=== PATIENT | female | born 1965 | race Caucasian/White ===

== ENCOUNTER 2021-02-15 08:12 | Outpatient (CLI) | payer OTHER, SELFPAY ==
--- NOTE | ~2021-02-15 | MM_ITS ---
EXAMINATION: MM screening kaia BI w rachel HISTORY: Screening TECHNIQUE: Craniocaudal and mediolateral oblique 3-D tomosynthesis images were obtained and synthetic 2-D images were generated. CAD analysis was submitted and interpreted. COMPARISON: Comparison to multiple prior studies sequentially, with oldest reviewed study dated 12/2012. BREAST PARENCHYMAL COMPOSITION: The breasts are heterogeneously dense, which may obscure small masses . FINDINGS: There is no evidence of suspicious mass, calcification, or architectural distortion to sugg est malignancy in either breast. There has been no suspicious interval change. IMPRESSION: 1. No mammographic evidence of malignancy. 2. Recommend routine screening mammography in one year. BI-RADS Category 1: Negative Reviewed, dictated and finalized at location A.
== END 2021-02-15 08:13 | disposition home or self-care (01) ==
LOC: ANHIMG 08:15
PROVIDERS: PCP Family Medicine; Visit Provider Family Medicine
DX: Z12.31 Encounter for screening mammogram for malignant neoplasm of breast (principal)
CPT/HCPCS: 77063; 77067

== ENCOUNTER → 2022-03-31 09:15 | Outpatient (CLI) | payer OTHER, SELFPAY ==
--- NOTE | ~2022-03-31 | XR_ITS ---
EXAMINATION:XR cervical spine 4-5V DATE: 03/31/2022 09:26 INDICATION: Neck pain TECHNIQUE: AP, lateral, lateral swimmers and odontoid views of the cervical spine are provided. COMPARISON: None FINDINGS: There are 2 mm of anterolisthesis of C3 on C4. The odontoid is intact. No fracture is ident ified. The vertebral body heights are maintained. There is moderate loss of intervertebral disc space height at C4-5, C5-6 and C7-T1. Prevertebral soft tissues are normal. There is moderate facet and un covertebral joint osteoarthritis throughout the cervical spine. IMPRESSION: 1. Moderate cervical spondylosis without acute findings. Reviewed, dictated and finalized at location A.
== END ==
PROVIDERS: PCP Family Medicine; Visit Provider Physician Assistant
DX: M54.2 Cervicalgia (principal); M43.02 Spondylolysis, cervical region
CPT/HCPCS: 72050

== ENCOUNTER → 2022-10-16 10:00 | Outpatient (CLI) | payer OTHER, SELFPAY ==
--- NOTE | ~2022-10-16 | XR_ITS ---
AP view of the pelvis and AP and lateral views of the left hip Clinical history: Pain Findings: No acute fracture or dislocation is seen. Osseous alignment is anatomic. There is mild dege nerative spurring at the superolateral left acetabular margin. Left hip joint space is preserved. Sof t tissues are unremarkable. Impression: . Minimal degenerative change of the left hip joint. Reviewed, dictated and finalized at location M. Impression: . Minimal degenerative change of the left hip joint.
== END ==
PROVIDERS: PCP Family Medicine; Visit Provider Physician Assistant
DX: M25.552 Pain in left hip (principal)
CPT/HCPCS: 73502

== ENCOUNTER 2023-02-26 13:10 | Outpatient (CLI) | payer OTHER, SELFPAY ==
--- NOTE | ~2023-02-26 | MM_ITS ---
EXAMINATION: MM screening kaia BI w rachel HISTORY: Screening mammogram TECHNIQUE: Craniocaudal and mediolateral oblique 3-D tomosynthesis images were obtained and synthetic 2-D images were generated. CAD analysis was submitted and interpreted. COMPARISON: 02/15/2021, 04/05/2017 bilateral screening mammogram examinations BREAST PARENCHYMAL COMPOSITION: The breasts are heterogeneously dense, which may obscure small masses . FINDINGS: There is no evidence of suspicious mass, calcification, or architectural distortion to sugg est malignancy in either breast. There has been no suspicious interval change. IMPRESSION: 1. No mammographic evidence of malignancy. 2. Recommend routine screening mammography in one year. BI-RADS Category 1: Negative Reviewed, dictated and finalized at location A.
--- NOTE | ~2023-02-26 | DEXA_ITS ---
Bone Density Report Name: LISETH FLETCHER Age: 57 Sex: Female Ethnicity: White Date of : 1965 Indication: postmenopausal; screening for osteoporosis; hysterectomy; Referring Provider: FLORESITA PARTIDA Study: Bone densitometry was performed. Exam Date: February 26, 2023 Accession number: [id number] Bone Density: Region BMD T-score Z-score Classification AP Spine(L1, L2) 0.945 -0.3 0.8 Normal Femoral Neck (Left) 0.758 -0.8 0.3 Normal Total Hip (Left) 1.013 0.6 1.3 Normal Femoral Neck (Right) 0.750 -0.9 0.2 Normal Total Hip (Right) 0.925 -0.1 0.6 Normal Total Hip Mean 0.969 0.3 1.0 Normal World Health Organization criteria for BMD impression classify patients as: Normal (T-score at or above -1.0), Osteopenia (T-score between -1.0 and -2.5), or Osteoporosis (T-score at or below -2.5). 10-year Fracture Risk: FRAX not reported because: All T-scores for Spine Total, Hip Total, Femoral Neck at or above -1.0 Clinical Information Provided by Patient: Has the following medical conditions: Hysterectomy Patient maximum height was 67 Menopause Age: 46 Drinks caffeinated beverages Onset of menses at age 13 Number of children 2 Impression: The patient has normal bone mass. Discussion: BONE DENSITY IS ABOVE THE MINIMUM DESIRABLE LEVEL AT ALL SKELETAL SITES TESTED. This patient?s bone mineral density is above the minimum desirable level (T-score -1.0 or better) at all sites measured. The patient should follow a healthful lifestyle (good nutrition with adequate calcium and vitamin D, and appropriate weight-bearing exercise). Follow-Up: Consider repeating this study in 5 years or sooner if there is some new clinical indication. Reported by: ALISSA on 02/26/2023 1:38:00 PM. Reviewed, dictated and finalized at location A. [facility]
== END 2023-02-26 13:11 | disposition home or self-care (01) ==
LOC: ANHIMG 13:12
PROVIDERS: PCP Family Medicine; Visit Provider Physician Assistant
DX: Z12.31 Encounter for screening mammogram for malignant neoplasm of breast (principal); Z78.0 Asymptomatic menopausal state
CPT/HCPCS: 77063; 77067; 77080

== ENCOUNTER 2023-05-15 13:26 | Outpatient (RCR) | payer OTHER, SELFPAY ==
[2023-05-15 13:30] VITALS: BMI 27.9
== END 2023-07-30 10:09 | disposition home or self-care (01) ==
LOC: ANHDMC 13:26
PROVIDERS: PCP Family Medicine; Visit Provider Physician Assistant
DX: E11.9 Type 2 diabetes mellitus without complications (principal); Z71.3 Dietary counseling and surveillance
CPT/HCPCS: 97802

== ENCOUNTER 2023-06-19 14:30 | Outpatient (RCR) | payer OTHER, SELFPAY ==
--- NOTE | 2023-05-22 09:50 | OPREHPOC ---
Outpatient Therapy Plan of Care This is a Multidisciplinary Plan of Care that may contain components documented by all disciplines (PT, OT, and ST.) PT Problem 1 PT Problem #1 Knowledge Deficit PT Goal 1 Goal Pt to be IND with issued HEP Target Visit 8 PT Problem 2 PT Problem #2 Pain PT Goal 1 Goal Pt to report neck/shoulder pain no greater than 3/ 10 in the last week. Target Visit 8 PT Goal 2 Goal Pt to report 75% improvement in overall symptoms. Target Visit 8 PT Problem 3 PT Problem #3 Impaired Range of Motion PT Goal 1 Goal Pt to improve amy cervical rotation to 60 deg actively. Target Visit 8 PT Problem 4 PT Problem #4 Impaired Strength PT Goal 1 Goal Pt to demonstrate amy shoulder strength grossly 4+ /5 Target Visit 8 PT Goal 2 Goal Pt to demonstrate amy overhead press with 5lb without compensations Target Visit 8
--- NOTE | 2023-05-22 09:51 | PTOPEVAL1 ---
Assessment and note entered by Vika Boyd, PT, DPT Evaluation Information Assessment Status Evaluation Diagnosis cervical radiculopathy Subjective Information Pt states she has cervical stenosis that makes her shoulders her more so than her neck. She states she received an injection last week and has been doing much better since. She states sleeping was initially her biggest complaint but this has also improved. Pt is a surgical nurse. Reported Pain Level Pain Score 2: Self Report Assessment PT Clinical Summary Brenda presents to therapy today for her initial evaluation with a diagnosis of cervical radiculopathy. Today she demonstrates decreased active cervical ROM, accessory upper trap recruitment, and decreased shoulder strength amy. She demonstrates good active shoulder ROM and normal cervical ROM passively. Skilled therapy services are indicated to address the depicts noted above, to improve mobility, and to return to PLOF. Plan of Care Interventions Electrical Stimulation,Hot Pack/Cold Pack,Manual Therapy,Mechanical Traction,Neuro Re-education, Patient/Caregiver Educati,Therapeutic Activities, Therapeutic Exercise PT Services Indicated Yes Treatment Frequency and 1x/wk for 4 visits Duration These treatments will address the objective and functional deficits as defined above. The patient will be advanced safely and appropriately in order for the patient to progress towards his/her prior level of function. Additional exercises will be introduced and as well as a comprehensive home exercise program upon discharge, if needed, ?to ensure carryover of functional gains achieved in the clinic. This treatment plan has been reviewed and agreement upon by the patient.
--- NOTE | 2023-06-19 15:25 | PTOPPROG ---
Assessment and note entered by Vika Boyd, PT, DPT Evaluation Information Assessment Status Progress Diagnosis cervical radiculopathy Subjective Information Pt states she can tell her back and shoulder feel stronger and more mobile that when she started therapy. She states she is getting another injection this week. Assessment PT Clinical Summary Brenda presents to therapy today for her progress report following 4 visits of skilled therapy to treat her diagnosis of cervical radiculopathy. Today she demonstrates improved cervical and shoulder active ROM without an increase in pain. She continues to have decreased shoulder strength but her strength is now equal bilaterally. Her HEP was progressed and she plans to continue this until her follow up. At that point, continuation of skilled therapy services are indicated to address the deficits noted above, to improve mobility, to manage pain, and to return to PLOF. Plan of Care Interventions Electrical Stimulation,Hot Pack/Cold Pack,Manual Therapy,Mechanical Traction,Neuro Re-education, Patient/Caregiver Educati,Therapeutic Activities, Therapeutic Exercise PT Services Indicated Yes Treatment Frequency and on hold pending follow up with provider, 1x/wk for Duration 4 visits if she continues These treatments will address the objective and functional deficits as defined above. The patient will be advanced safely and appropriately in order for the patient to progress towards his/her prior level of function. Additional exercises will be introduced and as well as a comprehensive home exercise program upon discharge, if needed, ?to ensure carryover of functional gains achieved in the clinic. This treatment plan has been reviewed and agreement upon by the patient.
--- NOTE | 2023-07-25 11:50 | PTOPDC ---
Assessment and note entered by Vika Boyd, PT, DPT Evaluation Information Assessment Status Discharge - Pt Not Present Diagnosis cervical radiculopathy Subjective Information Called and spoke with pt, she states she is having surgery next month. She will get a new order if therapy is indicated. Assessment PT Clinical Summary Brenda completed 4 visits of skilled therapy from 05/22/24 to 06/19/23, she will be discharged at this time.
== END 2023-07-25 13:27 | disposition home or self-care (01) ==
LOC: ANHGOSHPT 14:30
PROVIDERS: PCP Family Medicine
DX: M54.2 Cervicalgia (principal)
CPT/HCPCS: 97014; 97110; 97140; 97161; 97530; G0283

== ENCOUNTER 2023-11-02 11:45 | Outpatient (CLI) | payer OTHER, SELFPAY ==
--- NOTE | ~2023-11-02 | US_ITS ---
EXAMINATION: US thyroid DATE: 11/02/2023 12:00 INDICATION: Nontoxic goiter, unspecified. TECHNIQUE: Multiple ultrasound images of the thyroid were obtained. COMPARISON: Ultrasound 08/04/2014 FINDINGS: The right thyroid lobe measures 5.3 x 2.6 x 2.3 cm. The left thyroid lobe measures 6.2 x 2.2 x 1.8 c m. The thyroid is diffusely heterogeneous and hypoechoic with increased vascularity. No discrete nod ule. IMPRESSION: 1. Heterogeneous, hypervascular thyroid, likely chronic lymphocytic (Christine) thyroiditis. Reviewed, dictated and finalized at location A.
== END 2023-11-02 11:46 ==
LOC: MICIMG 11:46
PROVIDERS: PCP Family Medicine; Visit Provider Nurse Practitioner Family
DX: E04.9 Nontoxic goiter, unspecified (principal)
CPT/HCPCS: 76536

== ENCOUNTER 2024-07-23 15:41 | Outpatient (CLI) | payer OTHER, SELFPAY ==
--- NOTE | ~2024-07-23 | MM_ITS ---
EXAMINATION: MM screening kaia BI w rachel HISTORY: Screening TECHNIQUE: Craniocaudal and mediolateral oblique 3-D tomosynthesis images were obtained and synthetic 2-D images were generated. CAD analysis was submitted and interpreted. COMPARISON: Comparison to multiple prior studies sequentially, with oldest reviewed study dated 10/15. BREAST PARENCHYMAL COMPOSITION: Dense: The breasts are extremely dense, which lowers the sensitivity of mammography. FINDINGS: There is no evidence of suspicious mass, calcification, or architectural distortion to sugg est malignancy in either breast. There has been no suspicious interval change. IMPRESSION: 1. No mammographic evidence of malignancy. 2. Recommend routine screening mammography in one year. BI-RADS Category 1: Negative Reviewed, dictated and finalized at location B. N STATION AGENT
--- OUTSIDE RECORDS SUMMARY | 2024-07-23 15:46 | XMS_ITS | Patient Health Summary ---
Author Organization [facility] Address [address] [place] [address] Care Team Providers Care Bill Adjuster Name Role Phone Izzy Mckenzie MD Primary Care Provider [phone] Note from [facility],non-owned Affiliates and Associated Physician Practices is amultiple site organization consisting of ambulatory clinics and hospital sitesin [place], [place], [place] and [place]. This disclosure is being madepursuant to the Care Everywhere program and may not contain all information available regarding this patient. Last updated 18.[facility] Allergies No known active allergies Medications * Be aware that medications may not be up to date on this document. Alwaysverify current medications with the patient. * ALPRAZolam (XANAX) 0.25 MG tablet(Started 05/24/2018) * celecoxib (CELEBREX) 200 MG capsule(Started 05/24/2018) Take 200 mg by mouth 2 times daily * SYNTHROID 150 MCG tablet(Started 03/09/2019) Take 150 mcg by mouth once daily 1 refill left * traMADol (ULTRAM) 50 MG tablet(Started 02/27/2021) Take 50 mg by mouth every 8 hours as needed For pain. * phentermine (Ionamine) 30 MG capsule(Started 11/09/2021) Take 1 capsule by mouth once daily Active Problems Problem Noted Date Diagnosed Date History of total right knee replacement 01/28/20 22 Primary osteoarthritis of right knee 06/26/2018 Immunizations * COVID RENETTA PRIMARY 18+YR(Given 08/09/2020) Social History Tobacco Use Types Packs/Day Years Used Date Smoking Tobacco: Never Smokeless Tobacco: Never Alcohol Use Standard Drinks/Week Comments Yes 0 (1 standard drink = 0.6 oz pur e alcohol) socially Sex and Gender Information Value Date Recorded Sex Assigned at Not on file Gender Identity Not on file Sexual Orientation Not on file Last Filed Vital Signs Vital Sign Reading Time Taken Comments Blood Pressure 140/80 01/07/2021 11:09 AM CDT Pulse 64 01/07/2021 11:09 AM CDT Temperature 36.9 C (98.4 F) 01/07/2021 11:09 AM CDT Respiratory Rate 12 01/07/2021 11:09 AM CDT Oxygen Saturation 99% 01/07/2021 11:09 AM CDT Inhaled Oxygen Concentration - - Weight 79.5 kg (175 lb 3.2 oz) 01/06/2021 6:54 A M CDT Height 170.2 cm (5' 7 ) 01/06/2021 6:54 AM CDT Body Mass Index 27.44 01/06/2021 6:54 AM CDT Medical Devices Implanted Type Area Asbestos Pipe Supervisor Device Identifier Shelf Expiration Date Model / Serial / Lot Robert Bone [place]-[employer] Hv 40/20 Implanted:Qty: 1 on 01/06/2021 by Dario Jordan MD at [facility] Right: Knee [employer] 07/06/2022 [id number] / / [id number] Cmpnt Ptlr 28mm 1 Pg Wire Ascnt Arcm Kn Implanted:Qty: 1 on 01/06/2021 by Dario Jordan MD at [facility] Right: Knee Kt [employer] 11/11/2025 [id number] / / [id number] Tray Tib 71mm Kn Cocr I Beam Implanted:Qty: 1 on 01/06/2021 by Dario Jordan MD at [facility] Right: Knee Kt [employer] 10/30/2030 [id number] / / [id number] Cmpnt Fem Kn Rt Cr Cmnt Prm Vngrd Intlk Implanted:Qty: 1 on 01/06/2021 by Dario Jordan MD at [facility] Right: Knee Kt [employer] 09/22/2030 [id number] / / [id number] [id number] Vngrd Arcm Kn Ant Stab Implanted:Qty: 1 on 01/06/2021 by Dario Jordan MD at [facility] Right: Knee Kt [employer] [id number] / / [id number] Procedures * XR KNEE RIGHT 3VW(Performed 01/27/2022) Performed for Aftercare following right knee joint replacement surgery * NEURAXIAL BLOCK(Performed 01/06/2021) * HI TOTAL KNEE REPLACEMENT(Performed 01/06/2021) * EKG 12-LEAD(Performed 12/16/2020) Performed for Preop examination * COMPREHENSIVE METABOLIC PANEL(Performed 12/16/2020) Performed for Preop examination * CBC W AUTO DIFFERENTIAL(Performed 12/16/2020) Performed for Preop examination * XR KNEE RIGHT 3VW(Performed 12/03/2020) Performed for Primary osteoarthritis of right knee * XR KNEE RIGHT 3VW(Performed 06/24/2018) Performed for Chronic pain of right knee Results * XR KNEE RIGHT 3VW (01/27/2022 11:40 AM CDT) Only the most recent of3 resultswithin the time period is included. Anatomical Region Laterality Modality Lower Extremity Computed Radiogr aphy Narrative 01/27/2022 11:41 AM CDT Dior Donohue 02/10/2022 2:38 PM Please see progress notes for xray results Dario Jordan MD DIAGNOSTIC IMAGING O RDERABLES * Neuraxial Block (01/06/2021 8:45 AM CDT) Narrative Alma Delia Mayfield APRN-CRNA - 01/06/2021 8:45 AM CDT Alma Delia Mayfield APRN-CRNA 01/06/2021 8:48 AM Neuraxial Block Note Pre-Procedure: Procedure Name: Neuraxial Block Patient Location: OR Indications: surgical anesthesia Pre-Anesthetic Checklist: Patient identified, IV Checked, Risks and benefits discussed, Surgical consent verified, Monitors and equipment, Site examined, Pre-op evaluation done, Time-out performed, Informed consent obtained, Questions answered/anesthesia questions answered and Allergies reviewed Anticoagulation/ Anti-thrombosis status confirmed? Yes Supplemental O2: room air Monitors: continuous pluse ox and BP Patient Sedated? Yes Procedure: Block Type: Spinal Prep: Betadine Sterile Field: mask, cap/hat, sterile established and sterile gloves Approach: midline Skin was localized? Yes Spinal Block: Needle Type: spinal needle Needle Gauge: 22 Needle Length: 90 mm Placement Site: L2-3 Number of Attempts: 1 CSF: free flow, aspiration before injection Degree of difficulty: none Procedure Tolerance: tolerated well Sensory Level: mid-thoracic Motor Blockade: Yes Position post procedure: supine Vital Signs: Vital signs monitored and stable throughout. See anesthesia record for details. Start Time: 01/06/2021 8:11 AM End Time: 01/06/2021 8:15 AM Total Time: 4 Staff: Anesthesia Provider: Alma Delia Mayfield APRN-CRNA - performed the procedure Prasanth Gilbert MD GENERAL ANESTHESIA O RDERABLES * EKG 12-LEAD (12/16/2020 9:50 AM CDT) Ventricular Rate 71 BPM [facility] Atrial Rate 71 BPM [facility] P-R Interval 144 ms [facility] QRS Duration ms 82 ms [facility] Q-T Interval ms 378 ms [facility] QTC Calculation (Bezet) 410 ms [facility] Calculated P [place] 17 degrees [facility] Calculated R [place] 62 degrees [facility] Calculated T [place] 57 degrees [facility] Interpretation EKG Normal sinus rhythm Normal ECG No previous ECGs available Confirmed by MATHIEU REEDER MD ([id number]) on 12/16/2020 3:15:45 PM [facility] 12/16/2020 9:50 AM CDT 12/16/2020 3:15 PM CDT Anjali Coelho DO ECG ORDERABLES [facility] * CBC W AUTO DIFFERENTIAL (12/16/2020 9:27 AM CDT) WBC 6.9 4.4 - 10.7 x10E9/L 12/16/2020 9:34 AM CDT [facility] WBC Corrected 12/16/2020 9:34 AM CDT [facility] RBC 4.05 3.80 - 5.20 x10E12/L 12/16/2020 9:34 AM CDT [facility] Hemoglobin 12.8 12.0 - 15.6 gm/dL 12/16/2020 9:34 AM CDT [facility] Hematocrit 37.9 35.9 - 45.5 % 12/16/2020 9:34 AM CDT [facility] MCV 93.6 80.7 - 98.3 fl 12/16/2020 9:34 AM CDT [facility] MCH 31.6 26.7 - 34.0 pg 12/16/2020 9:34 AM CDT [facility] MCHC 33.8 30.8 - 35.9 gm/dL 12/16/2020 9:34 AM CDT [facility] Platelet Count 277 153 - 416 x10E9/L 12/16/2020 9:34 AM CDT [facility] RDW-CV 13.9 12.1 - 14.9 % 12/16/2020 9:34 AM CDT [facility] MPV 9.5 9.4 - 12.9 fl 12/16/2020 9:34 AM CDT [facility] Neutrophils % 55.0 44.0 - 73.0 % 12/16/2020 9:34 AM CDT [facility] Lymphocytes % 34.8 20.0 - 43.0 % 12/16/2020 9:34 AM CDT [facility] Monocytes % 7.7 5.0 - 13.0 % 12/16/2020 9:34 AM CDT [facility] Eosinophils % 1.3 0.0 - 6.0 % 12/16/2020 9:34 AM CDT [facility] Basophils % 0.9 0.0 - 2.0 % 12/16/2020 9:34 AM CDT [facility] Immature Granulocytes 0.3 0 - 1 % 12/16/2020 9:34 AM CDT [facility] Neutrophil Absolute 3.79 2.01 - 7.14 x10E9/L 12/16/2020 9:34 AM CDT [facility] Lymphocytes Absolute 2.40 1.07 - 3.94 x10E9/L 12/16/2020 9:34 AM CDT [facility] Monocytes Absolute 0.53 0.26 - 1.07 x10E9/L 12/16/2020 9:34 AM CDT [facility] Eosinophils Absolute 0.09 0 - 0.47 x10E9/L 12/16/2020 9:34 AM CDT [facility] Basophils Absolute 0.06 0 - 0.08 x10E9/L 12/16/2020 9:34 AM CDT [facility] Immature Granulocytes Absolute 0.02 0.00 - 0.06 x10E9/L 12/16/2020 9:34 AM CDT [facility] nRBC Auto 0 /100 WBC 12/16/2020 9:34 AM CDT [facility] Blood BLOOD SPECIMEN / Unknown Venipuncture / Unknown 12/16/2020 9:27 AM CDT 12/16/2020 9:31 AM CDT Alma Delia Rangel NEONATAL CRITICAL CARE NURSE-SCHOOL BUSINESS ADMINISTRATOR LAB - HEMATO LOGY ORDERABLES [facility] [address] [place] [address] * (ABNORMAL) COMPREHENSIVE METABOLIC PANEL (12/16/2020 9:27 AM CDT) Glucose 132(H) 70 - 105 mg/dL 12/16/2020 9:48 AM CDT [facility] Sodium 140 136 - 145 mmol/L 12/16/2020 9:48 AM CDT [facility] Potassium 3.9 3.5 - 5.1 mmol/L 12/16/2020 9:48 AM CDT [facility] Chloride 104 98 - 107 mmol/L 12/16/2020 9:48 AM CDT [facility] CO2 26 23 - 31 mmol/L 12/16/2020 9:48 AM CDT [facility] Calcium 9.3 8.4 - 10.4 mg/dL 12/16/2020 9:48 AM CDT [facility] Anion Gap 10 8 - 18 mmol/L 12/16/2020 9:48 AM CDT [facility] BUN 21(H) 9.8 - 20.1 mg/dL 12/16/2020 9:48 AM CDT [facility] Creatinine 0.72 0.57 - 1.11 mg/dL 12/16/2020 9:48 AM CDT [facility] Alkaline Phosphatase 57 40 - 150 U/L 12/16/2020 9:48 AM CDT [facility] ALT 16 0 - 61 U/L 12/16/2020 9:48 AM CDT [facility] AST 18 5 - 34 U/L 12/16/2020 9:48 AM CDT [facility] Protein Total 7.3 6.4 - 8.3 gm/dL 12/16/2020 9:48 AM CDT [facility] Albumin 4.5 3.5 - 5.2 gm/dL 12/16/2020 9:48 AM CDT [facility] Bilirubin Total 0.8 0.2 - 1.2 mg/dL 12/16/2020 9:48 AM CDT [facility] eGFR by MDRD >60 >60 mL/min/1.7 3m2 12/16/2020 9:48 AM CDT [facility] eGFR by MDRD >60 >60 mL/min/1.7 3m2 12/16/2020 9:48 AM CDT [facility] Blood BLOOD SPECIMEN / Unknown Venipuncture / Unknown 12/16/2020 9:27 AM CDT 12/16/2020 9:31 AM CDT Alma Delia Rangel NEONATAL CRITICAL C[employer] NURSE-SCHOOL BUSINESS ADMINISTRATOR LAB - CHEMIS TRY ORDERABLES [facility] [address] [place] [address] Care Teams Bill Adjuster Relationship Specialty Start Date End Date Izzy Mckenzie MD [address] [place] [address] PCP - General 09/17/17
--- OUTSIDE RECORDS SUMMARY | 2024-07-23 15:46 | XMS_ITS | Continuity of Care Document ---
Author Organization [facility] Address [address] [place] [address] Phone Care Team Providers Care Bow Maker Gift Wrapping Name Role Phone Marcello Sanchez MD Unavailable Unavailable Procedures Procedure Date INJECT, ANESTHETIC AND/OR ST EROID, TRANSFORAMINAL EPIDURAL; C/T, SINGLE LEVEL SURGICAL TRAY LOW OSMOLAR CONTRAST (200 TO 299 MG IODI NE) DEXAMETHASONE SODUIM PHOSPHATE (DECADRON ) INJECTION 1MG INJ SPINE CERV/THOR W/ IMAGING GUIDANCE SURGICAL TRAY LOW OSMOLAR CONTRAST (200 TO 299 MG IODI NE) Triamcinolone Acetonide Injection, 10mg MRI OF NECK, SPINE W/O CONTRAST 023 Advance Directives Directive Yes / No Effective Date File Name No Information Encounters Encounter Description Practice Location Reason(s) For Visit Diagnoses Date Provider Providers Copied on Encounter [facility], [address], [place], [place], [id number], [place] tel:[phone] [facility] No Information Daniel Armendariz. [address], [place], [place], [address], [place]. tel:[phone] Referring Provider: Rodriguez Goodman DO, [address], [place], [address]. tel:[phone] [facility], [address], [place], [place], [address], [place] tel:[phone] [facility] No Information Berna Graham. [address], [place], [place], [id number], [place]. tel:[phone] Referring Provider: Louie Chan DO [address], [place], [address]. tel:[phone] [facility], [address], [place], [place], [id number], tel:[phone] [facility] No Information Berna Graham. [address], [place], [place], [id number], . tel:[phone] Referring Provider: Rodrigeuz Goodman DO, [address], [place], [address]. tel:[phone] Family History Family Member Type Diagnosis Age At Onset No Information Payers Payer name Insurance type Covered libertarian ID [facility] CI [id number] Social History Type Description Quantity Date Captured Comments Sex Female Smoking Status No Information Chief Complaint And Reason For Visit No Information Reason For Referral Reason For Referral No Information History Of Present Illness Encounter Date Complaint History Of Prese nt Illness No Information Functional Status Date Functional Assessmen t No Information Instructions Date Instruction Additional Infor mation No Information Assessments Type Assessment Date No Information Patient Care Teams Name Effective Dates (start - stop) Status Members No Information
--- OUTSIDE RECORDS SUMMARY | 2024-07-23 15:46 | XMS_ITS | Clinical Summary ---
Author Organization [facility] Address [address], [address] [address] Phone Care Team Providers Care Furnace Process Supervisor Name Role Phone Izzy Mckenzie MD Primary Care Provider [phone] Adalid Stark MD Unavailable [phone] Medications polyethylene glycol (MIRALAX) Powder Use entire bottle of 255 grams of miralax for Colon prep as directed by office. 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 Gender Identity Not on file Sexual Orientation Not on file Plan of Treatment Health Maintenance Due Date Last Done Comments Hepatitis C Virus (HCV) Screening 1966 TdaP Immunization 1966 Hepatitis B Immunization (1 of 3 - 19+ 3-dose series) 1985 Pap Smear 11/14/1987 Cervical Cancer Screening (CCS) 1996 HPV/Cotest 1996 Cologuard 2016 Immunochemical Fecal Occult Blood 2016 Mammogram 2016 Pneumococcal Immunization (5 0+ years) (1 of 1 - PCV) 2016 Zoster Immunization (1 of 2) 2016 Influenza Immunization (#1) 2024 SARS-COV-2 Immunization ( - 2023-25 season) 2024 Colonoscopy 09/14/2027 09/13/2017 Colorectal Cancer Screening 09/14/2027 Respiratory Syncytial Virus (RSV) Immunization (Adult) (1 - 1-dose 75+ series) 2041 09/13/2017 Meningococcal Immunization (ACWY) Aged Out No longer eligible based on patient's age to complete this topic Pneumococcal Immunization Combined Aged Out No longer eligible based on patient's age to complete this topic Rotavirus Immunization Aged Out No lo nger eligible based on patient's age to complete this topic Procedures Procedure Name Priority Date/Time Associated Diagnosis Comments COLONOSCOPY Routine 09/13/2017 from Last 3 Months or Most Recently Relevant to Health Maintenance Results * [facility] COLONOSCOPY (09/13/2017) Tapan Underwood DO PROCEDURE/MINOR SURGICAL ORDERA BLES Final Result from Last 3 Months or Most Recently Relevant to Health Maintenance Insurance Care Teams Furnace Process Supervisor Relationship Specialty Start Date End Date Izzy Mckenzie MD [address] [place] [address] PCP - General Family Medicine 04/10/17 Adalid Stark MD [address] [place] [address] Obstetrics & Gynecology 04/10/17
--- OUTSIDE RECORDS SUMMARY | 2024-07-23 15:46 | XMS_ITS | Clinical Summary ---
Author Organization [facility] Address [address] [place] [address] Care Team Providers Care Greek Professor Name Role Phone Izzy Mckenzie MD Primary Care Provider Source Comments [facility],non-owned Affiliates and Associated Physician Practices is amultiple site organization consisting of ambulatory clinics and hospital sitesin [place], [place], [place] and [place]. This disclosure is being madepursuant to the Care Everywhere program and may not contain all information available regarding this patient. Last updated 18.[facility] Allergies No known active allergies Medications * Be aware that medications may not be up to date on this document. Alwaysverify current medications with the patient. Medication Sig Dispensed Refills Start Date End Date Status ALPRAZolam (XANAX) 0.25 MG tablet 05/24/2018 Active celecoxib (CELEBREX) 200 MG capsule Take 200 mg by mouth 2 times daily 05/24/2018 Active SYNTHROID 150 MCG tablet Take 150 mcg by mouth once daily 1 03/09/2019 Active traMADol (ULTRAM) 50 MG tablet Take 50 mg by mouth every 8 hours as needed For pain. 02/27/2021 Active phentermine (Ionamine) 30 MG capsule Take 1 capsule by mouth once daily 11/09/2021 Active Active Problems Problem Noted Date Diagnosed Date History of total right knee replacement 01/28/20 22 Primary osteoarthritis of right knee 06/26/2018 Immunizations Name Administration Dates Next Due COVID RENETTA PRIMARY 18+YR 08/09/2020 Social History Tobacco Use Types Packs/Day Years [...] Mass Index 27.44 01/06/2021 6:54 AM CDT Plan of Treatment Health Maintenance Due Date Last Done Comments COLOGUARD (AGES 45-75) - COL ON CA SCREENING 1966 COLON MONITORING 1966 COLONOSCOPY - COLON CA SCREENING 1966 CT COLONOGRAPHY - COLON CA SCREENING 1966 Colorectal Cancer Screening 1966 FIT - COLON CA SCREENING 1966 FLEX SIG - COLON CA SCREENING 1966 LIPID TESTING 1966 MAMMOGRAM 1966 HIV SCREENING 1981 HEPATITIS C SCREENING 11/08/1984 DTAP/TDAP/TD VACCINES (1 - Tdap) 1985 HEPATITIS B VACCINE (1 of 3 - 19+ 3-dose series) 1985 PAP with HPV 1996 PNEUMOCOCCAL VACCINE 50+ (1 of 1 - PCV) 2016 ZOSTER VACCINE (1 of 2) 2016 COVID-19 VACCINE (2 - 2023-2 5 season) 2024 08/09/2020 INFLUENZA VACCINE (#1) 2024 DEPRESSION SCREENING 06/04/2024 HIB VACCINE Aged Out No longer eligi ble based on patient's age to complete this topic HPV VACCINE Aged Out No longer eligi ble based on patient's age to complete this topic MENINGOCOCCAL (Group B) VACCINE Aged Out No longer eligible based on patient's age to complete this topic MENINGOCOCCAL VACCINE Aged Out No chapin katy eligible based on patient's age to complete this topic PNEUMOCOCCAL VACCINE Aged Out No long er eligible based on patient's age to complete this topic Medical Devices Implanted Type Area Hspt Tutor Device Identifier Shelf Expiration Date Model / Serial / Lot Robert Bone [place]-G Hv 40/20 Implanted:Qty: 1 on 01/06/2021 by Dario Jordan MD at [facility] Right: Knee [employer] 07/06/2022 600-15-100 / / [id number] Cmpnt Ptlr 28mm 1 Pg Wire Ascnt Arcm Kn Implanted:Qty: 1 on 01/06/2021 by Dario Jordan MD at [facility] Right: Knee Kt [employer] 11/11/2025 [id number] / / [id number] Tray Tib 71mm Kn Cocr I Beam Implanted:Qty: 1 on 01/06/2021 by Dario Jordan MD at [facility] Right: Knee Kt [employer] 10/30/2030 [id number] / / [id number] Cmpnt Fem Kn Rt Cr Cmnt Prm Vngrd Intlk Implanted:Qty: 1 on 01/06/2021 by Dario Jordan MD at [facility] Right: Knee Kt [employer] 09/22/2030 [id number] / / [id number] Brng [id number] Vngrd Arcm Kn Ant Stab Implanted:Qty: 1 on 01/06/2021 by Dario Jordan MD at [facility] Right: Knee Kt [employer] [id number] / / [id number] Advance Directives * Full Code (Latest Code Status on File) Date Activated Date Inactivated Comments 01/06/2021 10:12 AM 01/07/2021 3:24 PM Care Teams Greek Professor Relationship Specialty Start Date End Date Izzy Mckenzie MD [address] [place] [address] PCP - General 09/17/17
--- OUTSIDE RECORDS SUMMARY | 2024-07-23 15:46 | XMS_ITS | Referral Summary ---
Author Organization [facility] Address [address] [place] [address] Care Team Providers Care Billboard Erector Name Role Phone Izzy Mckenzie MD Primary Care Provider [phone] Source Comments [facility],non-owned Affiliates and Associated Physician Practices is amultiple site organization consisting of ambulatory clinics and hospital sitesin [place], [place], [place] and [place]. This disclosure is being madepursuant to the Care Everywhere program and may not contain all information available regarding this patient. Last updated 18.[facility] Allergies No known active allergies Medications * [...] 01/06/2021 6:54 AM CDT Plan of Treatment Not on file Medical Devices Implanted Type Area Digitizer Operator Device Identifier Shelf Expiration Date Model / Serial / Lot Robert Bone [place]-G Hv 40/20 Implanted:Qty: 1 on 01/06/2021 by Dario Jordan MD at [facility] Right: Knee [employer] 07/06/2022 600-15-100 / / [id number] Cmpnt Ptlr 28mm 1 Pg Wire Ascnt Arcm Kn Implanted:Qty: 1 on 01/06/2021 by Dario Jordan MD at [facility] Right: Knee Kt [employer] 11/11/2025 [id number] / / [id number] Tray Tib 71mm Kn Cocr I Beam Implanted:Qty: 1 on 01/06/2021 by Dario Jordan MD at [facility] Right: Knee Kt [employer] 10/30/2030 [id number] / / [id number] Cmpnt Fem Kn Rt Cr Cmnt Prm Vngrd Intlk Implanted:Qty: 1 on 01/06/2021 by Dario Jordan MD at [facility] Right: Knee K[employer] 09/22/2030 [id number] / / [id number] Brng [id number] Vngrd Arcm Kn Ant Stab Implanted:Qty: 1 on 01/06/2021 by Dario Jordan MD at [facility] Right: Knee Kt [employer] [id number] / / [id number] Advance Directives * Full Code (Latest Code Status on File) Date Activated Date Inactivated Comments 01/06/2021 10:12 AM 01/07/2021 3:24 PM Care Teams Billboard Erector Relationship Specialty Start Date End Date Izzy Mckenzie MD [address] [place] [address] PCP - General 09/17/17
== END 2024-07-23 15:42 | disposition home or self-care (01) ==
LOC: ANHIMG 15:44
PROVIDERS: PCP Family Medicine; Visit Provider Family Medicine
DX: Z12.31 Encounter for screening mammogram for malignant neoplasm of breast (principal)
CPT/HCPCS: 77063; 77067

== ENCOUNTER 2025-03-09 07:02 | Day surgery (SDC) | payer OTHER, SELFPAY ==
[2025-01-08 10:19] VITALS: BMI 24.3
[2025-02-24 13:57] VITALS: BMI 23.8
--- NOTE | 2025-03-09 08:07 | WPDANESEPPF ---
Anes - Initial Pre Proc Eval Procedure: Operation Date: 03/09/25 09:00 Proposed Procedures p Screening Colonoscopy - Jeremiah Crawford MD Date/Time: 03/09/25 08:07 Surgeon: Jeremiah Crawofrd MD Pre Op Diagnosis: Personal history of colon polyps, unspecified Patient Data Age: 59 Gender: F Height: 1.7 m Weight: 69 kg Allergies Allergy/AdvReac Type Severity Reaction Status Date / Time No Known Allergies Allergy Verified 03/09/25 07:54 Home Medications ?Medication ?Instructions ?Recorded ?Confirmed ?Type blood sugar diagnostic (Blood #50 ea 11/13/23 11/05/24 Rx Glucose Test strips) blood-glucose meter (Blood Glucose #1 ea 11/13/23 05/22/24 Rx Monitoring kit) tirzepatide 12.5 mg/0.5 mL 12.5 mg (0.5 mL) subcut WEEKLY #4 07/14/24 03/09/25 Rx subcutaneous pen injector mL (Mounjaro) levothyroxine 100 mcg tablet 100 mcg PO DAILY #90 tabs 11/18/24 03/09/25 Rx (Synthroid) celecoxib 200 mg capsule See Rx Instructions .Route 12/01/24 03/09/25 Rx .COMPLEX #60 ea metformin 500 mg tablet 500 mg PO BID #60 tabs 01/08/25 03/09/25 Rx tramadol 50 mg tablet 50 mg PO Q8H PRN pain #40 tabs 01/29/25 03/09/25 Rx alprazolam 0.25 mg tablet 0.25 mg PO TID PRN anxiety #60 tabs 03/03/25 03/09/25 Rx Patient hx anesthesia problems: none Family hx anesthesia problems: none Results Review: All pre-operative results and documents have been reviewed as part of the pre-operative evaluation. [facility] Past Medical History Medical History Type 2 diabetes mellitus Diabetes Impingement syndrome of right shoulder Tendinitis of right rotator cuff Labral tear of long head of left biceps tendon Tendinitis of left rotator cuff Subacromial impingement of left shoulder Chronic knee pain Hypothyroidism Anxiety Surgical History Surgical History History of hysterectomy 07/2014 per patient questionnaire History of knee surgery Right TKA 01/2021 Dr. Jordan per patient questionnaire Family History Family History Other Asthma Diabetes mellitus Family history of coronary artery disease Family history of malignant neoplasm Family history of thyroid disease Social History Social History Smoking status: Never smoker Second hand tobacco smoke exposure: No Alcohol intake: current Drinks per week: 3 Substance use: never Substance use type: does not use Lack of Transportation: No Lack of Food: Never True Current Housing: I Have Housing Concerned About Future Housing: No Difficulty Paying Gas/Electric Bills: No Difficulty Paying for Meds: No Currently Unemployed: No Education: Bachelor's Degree Difficulty w/ Childcare or Family Care: No Living arrangements: with family Spiritual care concerns: No Anes - Eval Final PreProcedure Day of Procedure 03/09/25 08:07 Heart: regular rate and rhythm Lungs: clear to auscultation Airway: Mallampati scale class 1 Neurological: alert and oriented Last oral intake: >/= 8 hours ASA classification: II Anesthetic plan: proceed Anesthesia type and monitoring: monitored anesthesia care Results Review: All pre-operative results and documents have been reviewed as part of the pre-operative evaluation. Informed Consent: The patient's anesthetic plan and its attendant risks and benefits were discussed with the patient/family/POA. Questions were solicited and answers provided to the satisfaction of the patient/family/POA.
[2025-03-09 08:10] VITALS: BMI 23.6
[2025-03-09 08:11] VITALS: BP 113/79; PULSE 77; RESP 16; TEMP 37.2; O2SAT 100
[2025-03-09] MEDS: LACTATED RINGERS 1,000 ML 150 ML IV CONT (08:13)
--- NOTE | 2025-03-09 08:32 | PM.IMHP ---
H&P: HPI History of Present Illness Date/Time: 03/09/25 08:32 Chief Complaint: Screening colonoscopy Narrative: This is the patient's 2nd colonoscopy. There are no GI symptoms and there is no family history of colorectal cancer. Review of Systems Review of Systems: All systems reviewed & are unremarkable except as noted in HPI and below PMFSH Past Medical History Medical History Type 2 diabetes mellitus Diabetes Impingement syndrome of right shoulder Tendinitis of right rotator cuff Labral tear of long head of left biceps tendon Tendinitis of left rotator cuff Subacromial impingement of left shoulder Chronic knee pain Hypothyroidism Anxiety Surgical History Surgical History History of hysterectomy 07/2014 per patient questionnaire History of knee surgery Right TKA 01/2021 Dr. Jordan per patient questionnaire Family History Family History Other Asthma Diabetes mellitus Family history of coronary artery disease Family history of malignant neoplasm Family history of thyroid disease Social History Social History Smoking status: Never smoker Second hand tobacco smoke exposure: No Alcohol intake: current Drinks per week: 3 Substance use: never Substance use type: does not use Lack of Transportation: No Lack of Food: Never True Current Housing: I Have Housing Concerned About Future Housing: No Difficulty Paying Gas/Electric Bills: No Difficulty Paying for Meds: No Currently Unemployed: No Education: Bachelor's Degree Difficulty w/ Childcare or Family Care: No Living arrangements: with family Spiritual care concerns: No Meds Home Medications and Allergies Home Medications ?Medication ?Instructions ?Recorded ?Confirmed ?Type blood sugar diagnostic (Blood #50 ea 11/13/23 11/05/24 Rx Glucose Test strips) blood-glucose meter (Blood Glucose #1 ea 11/13/23 05/22/24 Rx Monitoring kit) tirzepatide 12.5 mg/0.5 mL 12.5 mg (0.5 mL) subcut WEEKLY #4 07/14/24 03/09/25 Rx subcutaneous pen injector mL (Antonio) levothyroxine 100 mcg tablet 100 mcg PO DAILY #90 tabs 11/18/24 03/09/25 Rx (Synthroid) celecoxib 200 mg capsule See Rx Instructions .Route 12/01/24 03/09/25 Rx .COMPLEX #60 ea metformin 500 mg tablet 500 mg PO BID #60 tabs 01/08/25 03/09/25 Rx tramadol 50 mg tablet 50 mg PO Q8H PRN pain #40 tabs 01/29/25 03/09/25 Rx alprazolam 0.25 mg tablet 0.25 mg PO TID PRN anxiety #60 tabs 03/03/25 03/09/25 Rx Allergies Allergy/AdvReac Type Severity Reaction Status Date / Time No Known Allergies Allergy Verified 03/09/25 07:54 Vital Signs Vital Signs - 24 hr 03/09/25 08:11 Temperature 99 F Pulse Rate 77 Respiratory Rate 16 Blood Pressure 113/79 Pulse Oximetry 100 Oxygen Delivery Room Air Exam Const: General: cooperative and healthy appearing Resp: Effort & Inspection: normal respiratory effort and able to speak in complete sentences Auscultation: clear to auscultation bilaterally Cardio: Rate: regular rate Rhythm: regular rhythm GI: Inspection: normal to inspection GI Palp: No No hepatosplenomegaly present Auscultation: normal bowel sounds Rectal Exam: deferred Skin: General skin exam: normal color Psych: Appearance: grossly normal Mental Status: mental status grossly normal Assessment and Plan Assessment and plan (1) Personal history of colonic polyps: Code(s): Z86.0100 - Personal history of colon polyps, unspecified Status: Acute Assessment and Plan: The patient is deemed a good candidate for the procedure. Consent signed. Will proceed.
--- NOTE | 2025-03-09 08:39 | WPDANESPN ---
Anes - Prog Note Post-Op Date/Time: 03/09/25 08:39 Vital Signs: Last Vital Signs Temp 99 F 03/09/25 08:11 Pulse 77 03/09/25 08:11 Resp 16 03/09/25 08:11 BP 113/79 03/09/25 08:11 Pulse Ox 100 03/09/25 08:11 O2 Del Method Room Air 03/09/25 08:11 Pain Score (VAS): no 03/09/25 08:02 POC Capillary Glucose 102 Patient Feedback: Patient satisfied with anesthetic care.
[2025-03-09 09:01] VITALS: BP 98/66; PULSE 78; RESP 16; O2SAT 100
[2025-03-09 09:11] VITALS: BP 113/76; PULSE 73; RESP 16; O2SAT 100
[2025-03-09 09:21] VITALS: BP 115/76; PULSE 71; RESP 16; O2SAT 100
== END 2025-03-09 09:26 | disposition home or self-care (01) ==
PROVIDERS: PCP Family Medicine; Referring Provider Family Medicine; Visit Provider Internal Medicine Gastroenterology
PROC: 0DJD8ZZ Inspection of Lower Intestinal Tract, Via Natural or Artificial Opening Endoscopic (ICD-10-PCS; CPT 45378; principal; 2025-03-09 09:00)
DX: Z12.11 Encounter for screening for malignant neoplasm of colon (principal); K57.30 Diverticulosis of large intestine without perforation or abscess without bleeding; Z86.0100 Personal history of colon polyps, unspecified
CPT/HCPCS: 45378